=== PATIENT | female | born 1990 | race Caucasian/White ===

== ENCOUNTER 2023-03-17 18:40 | Emergency (ER) | payer SELFPAY ==
[~2023-03-17] VITALS: Ht 157.5 cm; Wt 105.0 kg
[2023-03-17 18:59] VITALS: O2SAT 100
[2023-03-17] MEDS ORDERED: LORATADINE 10MG TABLET PO SCH (19:15)
[2023-03-17] MEDS ORDERED: DEXAMETHASONE 4MG TABLET PO ONE (19:15)
[2023-03-17] MEDS ORDERED: DEXAMETHASONE 2MG TABLET PO NR (19:30)
[2023-03-17 20:03] VITALS: BP 142/84; PULSE 98; RESP 18; TEMP 98.9
== END 2023-03-17 20:12 | disposition home or self-care (01) ==
LOC: ER 18:40
DX: L50.9 Urticaria, unspecified (principal); Z98.890 Other specified postprocedural states
CPT/HCPCS: 99283; J8540